=== PATIENT | female | born 1995 | race Caucasian/White ===

== ENCOUNTER 2022-03-30 15:06 | Day surgery (SDC) | payer BC ==
[2022-03-30 15:50] VITALS: BMI 35.6
[2022-03-30] MEDS ORDERED: hydrALAZINE 20 MG/ML VIAL SLOW IVP PRN (16:20)
[2022-03-30 17:00] LABS: Bilirubin Neg (Negative); Blood, Urine Negative (Negative); Clarity Clear (Clear); Glucose, Urine (Dipstick) Normal (Negative); Ketone, Urine 50 mg/dL (Negative); Leukocyte Negative (Negative); Nitrite Negative (Negative); Protein, Urine (Dipstick) Negative (Neg-Trace); Urobilinogen Normal mg/dL (Less than 2)
[2022-03-30 17:05] LABS: Urine Culture Reflex No No
[2022-03-30 17:18] LABS: Bacteria/HPF None Seen HPF (None Seen); RBC/HPF None Seen HPF (0-3); Squamous Epithelial 0-3 HPF (0-3); WBC/HPF None Seen HPF (0-3)
== END 2022-03-30 18:35 | disposition home health service (06) ==
LOC: CSHLD/OP 15:06
PROVIDERS: ATTEND Obstetrics & Gynecology
DX: O47.1 False labor at or after 37 completed weeks of gestation (principal); O99.013 Anemia complicating pregnancy, third trimester; O26.893 Other specified pregnancy related conditions, third trimester; Z3A.33 33 weeks gestation of pregnancy; Z79.899 Other long term (current) drug therapy; Z86.16 Personal history of COVID-19; Z88.2 Allergy status to sulfonamides
CPT/HCPCS: 76819; 81001; 99282

== ENCOUNTER 2022-04-26 08:49 | Day surgery (SDC) | payer BC ==
[2022-04-26] MEDS ORDERED: hydrALAZINE 20 MG/ML VIAL SLOW IVP PRN (09:34)
[2022-04-26] MEDS ORDERED: Betamet Acet/Betamet Na Ph 30 MG/5 ML VIAL IM SCH (12:15)
== END 2022-04-26 13:00 | disposition home or self-care (01) ==
LOC: CSHLD/OP 08:49
PROVIDERS: ATTEND Obstetrics & Gynecology
DX: O36.8130 Decreased fetal movements, third trimester, not applicable or unspecified (principal); Z3A.37 37 weeks gestation of pregnancy; Z79.899 Other long term (current) drug therapy; Z88.2 Allergy status to sulfonamides
CPT/HCPCS: 76819; 99282

== ENCOUNTER 2022-05-01 16:10 | Inpatient (IN) | payer BC ==
[~2022-05-01 16:10] MED LIST: Bupivacaine 0.25% HCL 30 ML VIAL ONE; Lidocaine 2% MPF 10 ML AMP (For Epidural Use) ONE; ePHEDrine Sulfate 50 MG/10 ML VIAL ONE
[2022-05-01 17:37] VITALS: BMI 36.3
[2022-05-01] MEDS ORDERED: hydrALAZINE 20 MG/ML VIAL SLOW IVP PRN ×3 (18:21→22:12)
[2022-05-01] MEDS ORDERED: Butorphanol Tartrate 1 MG/ML VIAL SLOW IVP PRN (20:27)
[2022-05-01] MEDS ORDERED: Lidocaine 1% (PF) 30 ML VIAL SC PRN (20:27)
[2022-05-01] MEDS ORDERED: Acetaminophen 500 MG TAB PO PRN (20:27)
[2022-05-01] MEDS ORDERED: Carboprost 250 MCG/ML AMP IM PRN (20:27)
[2022-05-01] MEDS ORDERED: Ibuprofen 800 MG TAB PO PRN (20:27)
[2022-05-01] MEDS ORDERED: Promethazine HCl 25 MG/ML VIAL IM PRN (20:27)
[2022-05-01] MEDS ORDERED: Methylergonovine 0.2 MG/ML VIAL IM PRN (20:27)
[2022-05-01] MEDS ORDERED: Ondansetron PF 4 MG/2 ML Vial IVP PRN (20:27)
[2022-05-01] MEDS ORDERED: Misoprostol 200 MCG TAB PR PRN (20:27)
[2022-05-01] MEDS ORDERED: Diphenoxylate HCl/Atropine Tablet PO PRN (20:27)
[2022-05-01] MEDS ORDERED: NS w/ Oxytocin 30 units 500 ML IV SCH (21:00)
[2022-05-01] MEDS ORDERED: Penicillin G Potassium 5 MILL.UNITS in Sodium Chloride 0.9% 100 ML IVPB SCH (21:00)
[2022-05-01 22:00] LABS: Mean Corpuscular HGB CONC 32.2 g/dL (32.0-36.0); Mean Corpuscular Hemoglobin 27.5 pg (27.0-33.0); Mean Corpuscular Volume 85.7 fl (81.6-98.3); Mean Platelet Volume 11.2 fl (7.4-10.4); Platelet Count 273 10x3/uL (150-450); RBC Distribution Width 13.5 % (11.5-14.5); Red Blood Cell (RBC) Count 3.63 10x6/uL (3.90-5.03); White Blood Cell (WBC) Count 12.3 10x3/uL (3.5-10.5)
[2022-05-01] MEDS ORDERED: Calcium Gluc 4.6 MEQ/10 ML (100 MG/ML) SLOW IVP PRN (22:12)
[2022-05-01] MEDS ORDERED: Lorazepam 2 MG/ML VIAL SLOW IVP PRN (22:12)
[2022-05-01] MEDS ORDERED: Labetalol HCl 100 MG/20 ML VIAL SLOW IVP PRN ×2 (22:12)
[2022-05-01] MEDS ORDERED: Magnesium Sulfate 20 gm/500 ml 20 GM/500 ML BAG ONE (22:18)
[2022-05-01] MEDS: Magnesium Sulfate 20 gm/500 ml 20 GM/500 ML BAG IVPB SCH (22:26)
[2022-05-01 22:29] LABS: Syphilis Antibody Nonreactive (Nonreactive); Syphilis Antibody Index 0.03 S/CO (<1.00 Non-Reactive)
[2022-05-01 22:30] LABS: Hep B Surf Ag Non-Reactive S/CO (NonReactive)
[2022-05-01 22:36] LABS: ALT (SGPT) 11 U/L (8-55); AST (SGOT) 16 U/L (5-34); Albumin 3.5 g/dL (3.5-5.0); Alkaline Phosphatase 179 U/L (40-110); Anion Gap 16 mmol/L (10-20); BUN (Urea Nitrogen) 9 mg/dL (7.0-18.7); Bilirubin, Total 0.2 mg/dL (0.2-1.2); Calc. Creatinine Clearance 197 mL/min (70-130); Calcium 9.2 mg/dL (7.8-10.44); Carbon Dioxide 21 mmol/L (22-29); Chloride 103 mmol/L (98-107); Estimated GFR 124; Globulin 2.8 g/dL (2.4-3.5); Glucose 75 mg/dL (70-105); Potassium 3.9 mmol/L (3.5-5.1); Protein, Total 6.3 g/dL (6.0-8.3); Sodium 136 mmol/L (136-145)
[2022-05-01 22:38] LABS: HBSAg Index 0.17 S/CO (0-0.99)
[2022-05-01 23:47] LABS: Creatinine, Urine 34.16 mg/dL (47-110); Protein, Urine Random Quant Less than 10 mg/dL (1-14)
[2022-05-02] MEDS: Penicillin G 2.5 MILL.units 2.5 MILL.UNITS in Premix Bag 1 BAG IVPB SCH ×3 (00:38→11:08)
[2022-05-02] MEDS: NS w/ Oxytocin 30 units 500 ML IV SCH ×2 (00:55→13:39)
[2022-05-02] MEDS: Magnesium Sulfate 20 gm/500 ml 20 GM/500 ML BAG IVPB SCH ×2 (07:47→18:20)
[2022-05-02] MEDS ORDERED: Fentanyl 2 mcg/Bup 0.1% Cadd 100 ML ONE (09:53)
[2022-05-02] MEDS ORDERED: diphenhydrAMINE 50 MG/ML VIAL IVP PRN (10:33)
[2022-05-02] MEDS ORDERED: Acetaminophen 325 MG TAB PO PRN (10:33)
[2022-05-02] MEDS ORDERED: Promethazine HCl 25 MG/ML VIAL IM PRN (10:33)
[2022-05-02] MEDS ORDERED: ePHEDrine Sulfate 50 MG/10 ML VIAL SLOW IVP PRN (10:33)
[2022-05-02] MEDS ORDERED: Naloxone HCl 0.4 mg/ml Vial IVP PRN ×2 (10:33)
[2022-05-02] MEDS ORDERED: Moisturizing Cream (Eucerin) 113 GM JAR TOP PRN (10:33)
[2022-05-02] MEDS ORDERED: Ondansetron PF 4 MG/2 ML Vial IVP PRN (10:33)
[2022-05-02] MEDS ORDERED: Communication Order-Pharmacy FS SCH (10:45)
[2022-05-02] MEDS ORDERED: Fentanyl 2 mcg/Bupivacaine 0.1% Cassette 100 ML EPIDURAL SCH (10:45)
[2022-05-02] MEDS ORDERED: Lactated Ringer's 500 ML IV PRN (10:45)
[2022-05-02] MEDS ORDERED: Calcium Carbonate 500 MG ChewTAB PO SCH (11:45)
[2022-05-02] MEDS: Lactated Ringer's 1,000 ML IV SCH (14:22)
[2022-05-02] MEDS ORDERED: Benzocaine-Menthol 82.5 ML CAN TOP PRN ×2 (14:45→18:12)
[2022-05-02] MEDS ORDERED: Misoprostol 200 MCG TAB VAG PRN (14:45)
[2022-05-02] MEDS ORDERED: NS w/ Oxytocin 30 units 500 ML IV SCH (14:45)
[2022-05-02] MEDS ORDERED: hydrALAZINE 20 MG/ML VIAL SLOW IVP PRN (14:45)
[2022-05-02] MEDS ORDERED: Bisacodyl 10 MG SUPP PR PRN (14:45)
[2022-05-02] MEDS ORDERED: Milk Of Magnesia 30 ML UDCUP PO PRN (14:45)
[2022-05-02] MEDS ORDERED: HYDROcodone/Acetaminophen 5/325 mg Tablet PO PRN ×2 (14:45)
[2022-05-02] MEDS: Docusate 100 MG CAP PO SCH (21:39)
[2022-05-02] MEDS: Ibuprofen 800 MG TAB PO SCH (21:39)
[2022-05-03] MEDS: Magnesium Sulfate 20 gm/500 ml 20 GM/500 ML BAG IVPB SCH (05:32)
[2022-05-03] MEDS: Ibuprofen 800 MG TAB PO SCH ×4 (07:42→22:04)
[2022-05-03] MEDS: Ferrous Sulfate 325 MG TAB PO SCH ×3 (09:46→18:47)
[2022-05-03] MEDS ORDERED: Witch Hazel-Glycerin 1 EACH JAR TOP PRN (09:52)
[2022-05-03] MEDS: Docusate 100 MG CAP PO SCH ×2 (10:16→22:04)
[2022-05-03] MEDS: Prenatal Vitamin 1 TAB PO SCH (10:16)
[2022-05-03] MEDS ORDERED: Boostrix 0.5 ML (Tdap) VIAL IM ONE (14:45)
[2022-05-03] MEDS: Lactated Ringer's 1,000 ML IV SCH ×2 (14:45→14:46)
[2022-05-03] MEDS: Penicillin G 2.5 MILL.units 2.5 MILL.UNITS in Premix Bag 1 BAG IVPB SCH (14:46)
[2022-05-04] MEDS: Ibuprofen 800 MG TAB PO SCH ×2 (05:55→14:01)
[2022-05-04] MEDS: Prenatal Vitamin 1 TAB PO SCH (08:45)
[2022-05-04] MEDS: Docusate 100 MG CAP PO SCH (08:46)
[2022-05-04] MEDS: Ferrous Sulfate 325 MG TAB PO SCH (08:46)
[2022-05-04 12:01] VITALS: BP 130/73; TEMP 98.7
== END 2022-05-04 14:05 | disposition home or self-care (01) | DRG 807 ==
LOC: CSHLD/OP 16:10 → CSHLD 20:51 → CSHPP 05-03 08:45
PROVIDERS: ADMIT Student in an Organized Health Care Education/Training Program; ATTEND Student in an Organized Health Care Education/Training Program
PROC: 10E0XZZ Delivery of Products of Conception, External Approach (ICD-10-PCS; principal; 2022-05-02)
PROC: 10907ZC Drainage of Amniotic Fluid, Therapeutic from Products of Conception, Via Natural or Artificial Opening (ICD-10-PCS; 2022-05-02)
PROC: 0HQ9XZZ Repair Perineum Skin, External Approach (ICD-10-PCS; 2022-05-02)
DX: O99.824 Streptococcus B carrier state complicating childbirth (principal); Z37.0 Single live birth; Z3A.38 38 weeks gestation of pregnancy; F41.9 Anxiety disorder, unspecified; F32.A Depression, unspecified; O99.344 Other mental disorders complicating childbirth; Z79.899 Other long term (current) drug therapy; K21.9 Gastro-esophageal reflux disease without esophagitis; O99.62 Diseases of the digestive system complicating childbirth; Z88.2 Allergy status to sulfonamides; O70.0 First degree perineal laceration during delivery
CPT/HCPCS: 36415; 51702; 80053; 82570; 84156; 85027; 86780; 86850; 86900; 86901; 87340; 99285; J0360; J0595; J2405; J2540; J2590; J3475; S0020